=== PATIENT | female | born 1940 | race African-American/Black ===

== ENCOUNTER → 2017-04-04 | Outpatient (CLI) | payer MEDICARE ==
--- NOTE | 2017-04-04 13:29 | WOMENS IMAGING REPORT ---
EXAM DESCRIPTION: BONE DENSITY HIP/SPINE COMPLETED DATE/TIME: 04/04/2017 9:18 am REASON FOR STUDY: AGE-RELATED OSTEOPROSIS; M81.0 M81.0 AGE-RELATED OSTEOPOROSIS W/O CURRENT PATHOLO GICAL FRAC COMPARISON: None. TECHNIQUE: Dual-Energy X-ray Absorptiometry (DEXA) of the AP Spine and Hip. LIMITATIONS: None. FINDINGS: LUMBAR SPINE: The bone mineral density (BMD) measured from L1-L4 in the AP projection correlates with a T-score of -1.9, which is osteopenia as defined by the World Health Organization. HIP: The bone mineral density (BMD) measured in the left femoral neck at the hip correlates with a T-score of -0.7, which is normal as defined by the World Health Organization. IMPRESSION: 1. LUMBAR SPINE: Osteopenia 2. HIP: Normal COMMENT: The World Health Organization defines low BMD as follows: T-score: Normal: Greater than -1.0 Osteopenia: Between -1.0 and -2.5 Osteoporosis: Less than -2.5 without fractures Established osteoporosis: Less than -2.5 with fractures In general, you may wish to consider: Diagnosis Treatment Follow-up DEXA Normal BMD Prevention 2-3 years Osteopenia Prevention/Therapy 1-2 years Osteoporosis Therapy Yearly TECHNICAL DOCUMENTATION: JOB ID: [id number] [employer]- All Rights Reserved
== END ==
LOC: WI 09:18
PROVIDERS: ATTEND Internal Medicine
DX: M81.0 Age-related osteoporosis without current pathological fracture (principal)
CPT/HCPCS: 77080

== ENCOUNTER 2018-02-27 21:16 | Emergency (ER) | payer MEDICARE ==
[2018-02-27] MEDS ORDERED: ASPIRIN 81 MG TABLET, CHEWABLE PO ONE (21:52)
--- NOTE | 2018-02-27 21:54 | ER Document Report ---
ED Medical Screen (RME) - General Chief Complaint: Chest Pain Stated Complaint: CHEST PAIN Time Seen by Provider: 02/27/18 21:48 Notes: 77-year-old female, chief complaint of sharp chest pain when she breathes in and general chest discomfort, states it happened this morning and went away, came back this evening. Reports current discomfort especially with deep breaths. Denies shortness of breath, fever, nausea or vomiting. Recently got over sinus infection and coughing illness. No lower extremity swelling, former smoker, no history of blood clot, [place]. Recently completed azithromycin. PMH: hypertension, gout; takes daily ASA TRAVEL OUTSIDE OF THE [place] IN LAST 30 DAYS: No - Related Data Allergies/Adverse Reactions: No Known Allergies Allergy (Unverified 02/27/18 21:21) Physical Exam - Vital signs Vitals: Temp Pulse Resp BP Pulse Ox 98.7 F 107 H 18 151/63 H 99 02/27/18 21:23 02/27/18 21:23 02/27/18 21:23 02/27/18 21:23 02/27/18 21:23 - Respiratory Respiratory status: No respiratory distress. No: Respiratory distress, Labored Chest status: No: Tender Breath sounds: Normal. No: Decreased air movement, Wheezing - Cardiovascular Rhythm: Regular, Tachycardia - Borderline tachycardia Heart sounds: Normal auscultation, S1 appreciated, S2 appreciated Murmur: No Course - Re-evaluation Re-evalutation: I have greeted and performed a rapid initial assessment of this patient. A comprehensive ED assessment and evaluation of the patient, analysis of test results and completion of the medical decision making process will be conducted by additional ED providers. - Vital Signs Vital signs: Temp Pulse Resp BP Pulse Ox 98.7 F 107 H 18 151/63 H 99 02/27/18 21:23 02/27/18 21:23 02/27/18 21:23 02/27/18 21:23 02/27/18 21:23 Doctor's Discharge - Discharge Referrals: ISABELLE ZAMARRIPA MD [Primary Care Provider] - Follow up as needed
--- NOTE | 2018-02-27 23:17 | RADIOLOGY REPORT (SQ) ---
EXAM DESCRIPTION: Single view chest COMPLETED DATE/TME: 02/27/2018 21:52 CLINICAL HISTORY: 77 years Female chest pain COMPARISON: None. FINDINGS: Cardiac size and mediastinal contour appear within normal limits. There are patchy bilateral pulmonary infiltrates particularly in the periphery of the upper lobes which may reflect chronic interstitial lung disease. Acute developing infectious or inflammatory process is not excluded. No definite pleural fluid or pneumothorax noted. IMPRESSION: Coarse interstitial infiltrates which may be chronic in nature. Acute infectious process not excluded
[2018-02-27 23:56] LABS: ABSOLUTE BASOPHILS # (AUTO) 0.1 10^3/uL (0.0-0.2); ABSOLUTE EOSINOPHILS # (AUTO) 0.2 10^3/uL (0.0-0.6); ABSOLUTE LYMPHOCYTES (AUTO) 1.6 10^3/uL (0.5-4.7); ABSOLUTE MONOCYTES (AUTO) 0.8 10^3/uL (0.1-1.4); ABSOLUTE NEUT (AUTO) 6.5 10^3/uL (1.7-8.2); BASOPHILS % (AUTO) 1.2 % (0-2); EOSINOPHILS % (AUTO) 1.7 % (0-6); HEMATOCRIT 35.5 % (36.0-47.0); LYMPHOCYTES % (AUTO) 17.7 % (13-45); MEAN CORPUSCULAR HEMOGLOBIN 31.6 pg (27.0-33.4); MEAN CORPUSCULAR HGB CONC 33.7 g/dL (32.0-36.0); MEAN CORPUSCULAR VOLUME 94 fl (80-97); MONOCYTES % (AUTO) 8.7 % (3-13); PLATELET COUNT 179 10^3/uL (150-450); RED BLOOD COUNT 3.78 10^6/uL (3.72-5.28); RED CELL DISTRIBUTION WIDTH 14.2 % (11.5-14.0); SEGMENTED NEUTROPHILS % (AUTO) 70.7 % (42-78); TOTAL CELLS COUNTED % (AUTO) 100 %; WHITE BLOOD COUNT 9.2 10^3/uL (4.0-10.5)
[2018-02-28 00:07] LABS: ALANINE AMINOTRANSFERASE 27 U/L (9-52); ALBUMIN 3.6 g/dL (3.5-5.0); ALKALINE PHOSPHATASE 67 U/L (38-126); ANION GAP 8 (5-19); ASPARTATE AMINO TRANSFERASE 27 U/L (14-36); BILIRUBIN,DIRECT 0.2 mg/dL (0.0-0.4); BILIRUBIN,TOTAL 0.7 mg/dL (0.2-1.3); BLOOD UREA NITROGEN 28 mg/dL (7-20); CALCIUM 9.8 mg/dL (8.4-10.2); CARBON DIOXIDE 27 mmol/L (22-30); CHLORIDE 101 mmol/L (98-107); CREATINE KINASE 142 U/L (30-135); GLUCOSE 111 mg/dL (75-110); POTASSIUM 3.7 mmol/L (3.6-5.0); SODIUM 136.1 mmol/L (137-145); TOTAL PROTEIN 6.8 g/dL (6.3-8.2)
[2018-02-28 00:19] LABS: CREATINE KINASE MB 0.99 ng/mL (<4.55)
[2018-02-28 00:23] LABS: TROPONIN I < 0.012 ng/mL
--- NOTE | 2018-02-28 02:40 | ER Document Report ---
ED General - General Chief Complaint: Chest Pain Stated Complaint: CHEST PAIN Time Seen by Provider: 02/27/18 21:48 Notes: Patient is a 77-year-old female, chief complaint of sharp chest pain when she breathes in and general chest discomfort, states it happened this morning and went away, came back this evening. Reports current discomfort especially with deep breaths. Denies shortness of breath, fever, nausea or vomiting. Recently got over sinus infection and coughing illness. No lower extremity swelling, former smoker, no history of blood clot, [place]. Recently completed azithromycin. PMH: hypertension, gout; takes daily ASA TRAVEL OUTSIDE OF THE [place] IN LAST 30 DAYS: No - Related Data Allergies/Adverse Reactions: No Known Allergies Allergy (Unverified 02/27/18 21:21) Past Medical History - General Information source: Patient - Social History Smoking Status: Former Smoker Frequency of alcohol use: None Drug Abuse: None Lives with: Family Family History: Reviewed & Not Pertinent Patient has suicidal ideation: No Patient has homicidal ideation: No - Past Medical History Cardiac Medical History: Reports: Hx Hypertension Renal/ Medical History: Denies: Hx Peritoneal Dialysis - Immunizations Hx Diphtheria, Pertussis, Tetanus Vaccination: Yes Review of Systems - Review of Systems Constitutional: See HPI EENT: No symptoms reported Cardiovascular: See HPI Respiratory: See HPI Gastrointestinal: No symptoms reported Genitourinary: No symptoms reported Female Genitourinary: No symptoms reported Musculoskeletal: See HPI Skin: No symptoms reported Hematologic/Lymphatic: No symptoms reported Neurological/Psychological: No symptoms reported Physical Exam - Vital signs Vitals: Temp Pulse Resp BP Pulse Ox 98.7 F 107 H 18 151/63 H 99 02/27/18 21:23 02/27/18 21:23 02/27/18 21:23 02/27/18 21:23 02/27/18 21:23 - Notes Notes: GENERAL: Alert, interacts well. No acute distress. HEAD: Normocephalic, atraumatic. EYES: Pupils equal, round, and reactive to light. Extraocular movements intact. ENT: Oral mucosa moist, tongue midline. Unremarkable oropharyngeal exam and nasal exam. NECK: Full range of motion. Supple. Trachea midline. LUNGS: Pain noted with inspiration, mild tenderness over the chest wall anteriorly, no crepitus or severe pain, no erythema. Lungs clear on auscultation, no tachypnea or respiratory distress. HEART: Regular rate and rhythm. No murmur ABDOMEN: Soft, non-tender. Non-distended. Bowel sounds present in all 4 quadrants. EXTREMITIES: Moves all 4 extremities spontaneously. No edema, normal radial and dorsalis pedis pulses bilaterally. No cyanosis. BACK: no cervical, thoracic, lumbar midline tenderness. No saddle anesthesia, normal distal neurovascular exam. NEUROLOGICAL: Alert and oriented x3. Normal speech. [cranial nerves II through XII grossly intact]. PSYCH: Normal affect, normal mood. SKIN: Warm, dry, normal turgor. No rashes or lesions noted. Course - Re-evaluation Re-evalutation: EKG sinus rhythm with no T-wave inversions or ST segment changes in consecutive leads. CBC unremarkable, chemistry unremarkable except for creatinine of 1.5, I do not know patient's baseline. Patient does not know her baseline either. Patient has tenderness with inspiration, some pleuritic chest pain, some cough and chest wall tenderness. Chest x-ray showing possible chronic or acute process. Based on her recent illness, cough, pleuritic chest pain, he had a discussion with patient decision was made to cover her for possible developing pneumonia. She does not have fever, tachycardia, hypoxia, or any signs of respiratory distress. Troponin cycled and unremarkable. Patient is asking to go home. I did discuss possible admission for chest pain after discussion patient declined, I do have low suspicion of ACS, pulmonary embolism, this appears to be chest, possible pleurisy, possible pneumonia. Patient's tachycardia was minimal at triage and she is not tachycardic on my exam or repeat evaluation. She does not smoke, has no lower extremity swelling, she has no distress or any current complaints except for when she takes a deep breath on my exam. Patient will be treated with doxycycline, discussed follow- up and return precautions. Patient states understanding and agreement. - Vital Signs Vital signs: Temp Pulse Resp BP Pulse Ox 98.7 F 107 H 15 115/71 96 02/28/18 04:01 02/27/18 21:23 02/28/18 04:01 02/28/18 04:01 02/28/18 04:01 - Laboratory Result Diagrams: 02/27/18 23:30 02/27/18 23:30 Laboratory results interpreted by me: 02/27/18 02/27/18 23:30 23:30 Hct 35.5 L RDW 14.2 H Sodium 136.1 L BUN 28 H Creatinine 1.53 H Est GFR ( Amer) 40 L Est GFR (Non-Af Amer) 33 L Glucose 111 H Creatine Kinase 142 H Discharge - Discharge Clinical Impression: Cough, Chest wall pain Chest pain Qualifiers: Chest pain type: unspecified Qualified Code(s): R07.9 - Chest pain, unspecified Condition: Stable Disposition: HOME, SELF-CARE Additional Instructions: Your workup here tonight is reassuring, your heart workup at this time is normal. Your chest x-ray shows possible developing pneumonia, this is possibly developing after your upper respiratory infection which was viral. Take doxycycline as prescribed. Take Tylenol for pain. Drink plenty of fluids and rest. Your kidney functioning tests, creatinine, was 1.53 today. Please have this followed and trended by your primary care. Follow-up with your primary care within the next several days. Return if you worsen including difficulty breathing, fever, passing out, severe pain, or any other concerning or worsening symptoms. Prescriptions: Doxycycline Hyclate 100 mg PO BID #14 capsule Referrals: ISABELLE ZAMARRIPA MD [Primary Care Provider] - Follow up as needed
[2018-02-28] MEDS ORDERED: DOXYCYCLINE HYCLATE 100 MG TABLET PO ONE (03:36)
[2018-02-28 04:09] VITALS: BP 115/71
--- NOTE | 2018-02-28 07:37 | EKG REPORT ---
SEVERITY:- OTHERWISE NORMAL ECG - SINUS TACHYCARDIA : Confirmed by: Jason Serrano MD 28-Feb-2018 07:37:08
== END 2018-02-28 04:09 | disposition home or self-care (01) ==
LOC: ER 21:16
DX: R07.89 Other chest pain (principal); R05 Cough; Z87.891 Personal history of nicotine dependence
CPT/HCPCS: 93005; 99285; 36415; 82553; 82550; 85025; 80053; 84484; 71045; 93010; A9270 ×2

== ENCOUNTER → 2018-12-05 | Outpatient (CLI) | payer MEDICARE ==
--- NOTE | 2018-12-05 09:01 | RADIOLOGY REPORT (SQ) ---
EXAM DESCRIPTION: CT CHEST WITHOUT COMPLETED DATE/TIME: 12/05/2018 7:40 am REASON FOR STUDY: COPD (J44.9) J44.9 CHRONIC OBSTRUCTIVE PULMONARY DISEASE, UNSPECIFIED COMPARISON: None. TECHNIQUE: CT scan performed of the chest without intravenous contrast. Images reviewed with lung, soft tissue and bone windows. Reconstructed coronal and sagittal MPR images reviewed. All images st ored on PACS. All CT scanners at this facility use dose modulation, iterative reconstruction, and/or weight based d osing when appropriate to reduce radiation dose to as low as reasonably achievable (ALARA). [facility]: Dose Right [facility]: CareDose [facility]: Dose Right [facility]: Teradose 4D [facility]: [employer] RADIATION DOSE: CT Rad equipment meets quality standard of care and radiation dose reduction techniq ues were employed. CTDIvol: 6.9 mGy. DLP: 251 mGy-cm. mGy. LIMITATIONS: No technical limitations. FINDINGS: LUNGS AND PLEURA: Scattered areas of subsegmental subpleural honeycombing with associated bronchiectasis in both lungs. Relative sparing of the mid lung zones. 5 mm nodule left upper lobe i mage 48. No effusions. HILAR AND MEDIASTINAL STRUCTURES: No identified masses or abnormal nodes. No obvious aneurysm. HEART AND VASCULAR STRUCTURES: No aneurysm. No pericardial effusion. UPPER ABDOMEN: No significant findings. Limited exam. THYROID AND OTHER SOFT TISSUES: No masses. No adenopathy. BONES: Nothing acute. HARDWARE: None in the chest. OTHER: No other significant findings. IMPRESSION: Apical and basilar areas of fibrosis and associated bronchiectasis. 5 mm nodule left upper lobe. TECHNICAL DOCUMENTATION: JOB ID: [id number] Quality ID # [id number]: Final reports with documentation of one or more dose reduction techniques (e.g., Au tomated exposure control, adjustment of the mA and/or kV according to patient size, use of iterative reconstruction technique) 2010 [employer]- All Rights Reserved Reading location - IP/workstation name: [email or web address]
== END ==
LOC: RAD 07:10
PROVIDERS: ATTEND Internal Medicine
DX: J44.9 Chronic obstructive pulmonary disease, unspecified (principal); J84.10 Pulmonary fibrosis, unspecified
CPT/HCPCS: 71250

== ENCOUNTER → 2020-02-11 | Outpatient (CLI) | payer MEDICARE ==
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
== END ==
LOC: RAD 16:23
PROVIDERS: ATTEND Internal Medicine
DX: S81.812A Laceration without foreign body, left lower leg, initial encounter (principal); X58.XXXA Exposure to other specified factors, initial encounter; Y93.9 Activity, unspecified; Y92.9 Unspecified place or not applicable

== ENCOUNTER 2020-06-10 08:52 | Day surgery (SDC) | payer MEDICARE ==
[~2020-06-10 08:52] MED LIST: CEFAZOLIN 1 GM/D5W RTU 1 GM/50 ML RTUPB IV PRN; LIDOCAINE 4% CREAM 5 GM TUBE TP PRN
[2020-06-10] MEDS ORDERED: CEFAZOLIN 1 GM/D5W RTU 1 GM/50 ML RTUPB IV ONE (09:10)
[2020-06-10] MEDS ORDERED: LIDOCAINE 4% CREAM 5 GM TUBE ONE (09:10)
[2020-06-10 10:16] LABS: ABSOLUTE BASOPHILS # (AUTO) 0.1 10^3/uL (0.0-0.2); ABSOLUTE EOSINOPHILS # (AUTO) 0.1 10^3/uL (0.0-0.6); ABSOLUTE LYMPHOCYTES (AUTO) 1.2 10^3/uL (0.5-4.7); ABSOLUTE MONOCYTES (AUTO) 0.5 10^3/uL (0.1-1.4); ABSOLUTE NEUT (AUTO) 3.4 10^3/uL (1.7-8.2); BASOPHILS % (AUTO) 1.1 % (0-2); EOSINOPHILS % (AUTO) 2.6 % (0-6); HEMATOCRIT 38.2 % (36.0-47.0); HEMOGLOBIN 13.1 g/dL (12.0-15.5); LYMPHOCYTES % (AUTO) 22.9 % (13-45); MEAN CORPUSCULAR HEMOGLOBIN 32.1 pg (27.0-33.4); MEAN CORPUSCULAR HGB CONC 34.3 g/dL (32.0-36.0); MEAN CORPUSCULAR VOLUME 94 fl (80-97); MONOCYTES % (AUTO) 9.1 % (3-13); PLATELET COUNT 161 10^3/uL (150-450); RED BLOOD COUNT 4.08 10^6/uL (3.72-5.28); RED CELL DISTRIBUTION WIDTH 13.2 % (11.5-14.0); SEGMENTED NEUTROPHILS % (AUTO) 64.3 % (42-78); TOTAL CELLS COUNTED % (AUTO) 100 %; WHITE BLOOD COUNT 5.3 10^3/uL (4.0-10.5)
[2020-06-10 10:39] LABS: ANION GAP 8 (5-19); BLOOD UREA NITROGEN 23 mg/dL (7-20); CALCIUM 10.1 mg/dL (8.4-10.2); CARBON DIOXIDE 25 mmol/L (22-30); CHLORIDE 105 mmol/L (98-107); GLUCOSE 109 mg/dL (75-110); POTASSIUM 3.9 mmol/L (3.6-5.0)
[2020-06-10] MEDS ORDERED: HYDROMORPHONE HCL INJ/PF 2 MG/ML AMPULE ONE (11:00)
[2020-06-10] MEDS ORDERED: MIDAZOLAM 2 MG/2 ML INJ ONE (11:00)
[2020-06-10] MEDS ORDERED: PROPOFOL INJ 200 MG/20 ML VIAL IV ONE (11:01)
--- NOTE | 2020-06-10 11:35 | RADIOLOGY REPORT (SQ) ---
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 RADIONUCLIDE AND DOSE: 584 microcuries TC-99m tilmanocept - Lymph[employer]ek. The route of agent administration: Subcutaneous in the skin. TECHNIQUE: The skin of the right breast was prepped in the usual sterile fashion. The radiopharmace utical was then administered in equally divided doses in the periareolar breast. LIMITATIONS: None. FINDINGS: Images demonstrate activity at the injection site. IMPRESSION: ADMINISTRATION OF RADIOPHARMACEUTICAL FOR SENTINEL LYMPH NODE EVALUATION. TECHNICAL DOCUMENTATION: JOB ID: [id number] 2010 [employer]- All Rights Reserved Reading location - IP/workstation name: [email or web address]
[2020-06-10] MEDS ORDERED: MICROFIBRILLAR COLLAGEN 1 GM PACK ONE (13:01)
[2020-06-10] MEDS ORDERED: METHYLENE BLUE 50 MG/10 ML AMPULE ONE (13:01)
[2020-06-10] MEDS ORDERED: LIDOCAINE 1%/EPINEPHRINE INJ 20 ML VIAL ONE (13:02)
[2020-06-10] MEDS ORDERED: MORPHINE SULFATE 10 MG/ML INJ IV PRN (13:44)
[2020-06-10] MEDS ORDERED: MEPERIDINE HCL/PF INJ 25 MG/1 ML DISP.SYRIN IV PRN (13:44)
[2020-06-10] MEDS ORDERED: ONDANSETRON HCL INJ/PF 4 MG/2 ML SDV IV PRN (13:44)
[2020-06-10] MEDS ORDERED: DIPHENHYDRAMINE HCL 50 MG/ML VIAL IV PRN (13:44)
[2020-06-10] MEDS ORDERED: FENTANYL CITRATE INJ/PF 100 MCG/2 ML AMPUL IV PRN ×3 (13:44)
[2020-06-10] MEDS ORDERED: DEXAMETHASONE SOD PHOSPHATE INJ 4 MG/1 ML VIAL ONE (14:55)
[2020-06-10] MEDS ORDERED: ROCURONIUM BROMIDE INJ 50 MG/5 ML VIAL IV ONE (14:55)
[2020-06-10] MEDS ORDERED: KETOROLAC TROMETHAMINE 60 MG/2 ML SDV ONE (14:55)
[2020-06-10] MEDS ORDERED: ONDANSETRON HCL INJ/PF 4 MG/2 ML SDV ONE (14:55)
--- NOTE | 2020-06-10 15:04 | Operative Report ---
Operative Report DATE OF SURGERY: 06/10/20 PREOPERATIVE DIAGNOSIS: 1. 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 2. History of COPD POSTOPERATIVE DIAGNOSIS: Same OPERATION: 1. Right mastectomy. 2. Right axillary sentinel lymph node biopsy x3 using dual mapping technique. 3. Drainage of chest wall SURGEON: FRANCESCO CHAVEZ 1ST CURRICULUM COUNSELOR: KAY WILLSON ANESTHESIA: GA TISSUE REMOVED OR ALTERED: Right breast; 3 sentinel lymph nodes COMPLICATIONS: None ESTIMATED BLOOD LOSS: 150 cc INTRAOPERATIVE FINDINGS: See below PROCEDURE: Patient was seen in the preop holding area where the right axilla was scanned with the neoprobe. Findings are significant for an area of increased uptake in the right axilla consistent with successful attic mapping using Lymph[employer]ek. The patient was then taken to the main operating room where general anesthesia was induced. The right arm was abducted, and the right breast injected with 2 cc of full-strength methylene blue 10 o'clock position, areolar border. The right breast was massaged, than the right breast and axilla were prepped and draped in sterile fashion with Betadine Surgical plan surgical timeout were conducted. Markings were made on the skin for a classic elliptical excision for planned mastectomy. The breast was incised with a #10 blade. Superior and inferior skin flaps were raised. The superior flap was taken to the infraclavicular area, medially to the parasternal tissue; inferiorly the flap was taken to the insertion inferior to the insertion of the pectoralis muscle, and laterally to the latissimus dorsi muscle. The breast was removed from the chest wall, including the pectoralis major fascia. Of note the tumor in the 7:30 position, right breast, came very close to the chest wall but did not invade the muscle. We did take a thin sliver of pectoralis major muscle with the posterior side of the mastectomy representing the deep margin. The lateral skin flaps were elevated, and the dissection taken down to the origination of the pectoralis major muscle. The undersurface of the breast was taken off of the lateral edge of the pectoralis major muscle. With the breast in situ, we now harvested sentinel lymph nodes. 3 sentinel lymph nodes were harvested from the low to mid axilla. The first hot but not blue with an in vivo count of 3604. The ex vivo count was 1159. Slightly deep to this was a second sentinel lymph node, blue and hot with an in vivo count of 9181 and an ex vivo count of 11,190. The third sentinel lymph node in the same vicinity very small, blue and hot had an ex vivo count of 12,843. Background counts were negligible. We felt that the sentinel lymph node portion of the operation was complete. The tail isabella Ramos was excised from the axilla with electrocautery. The right breast was marked with a long silk ramon ture in the lateral position, short suture in the superior position. Dr. Chavez personally walked the specimen to Dr. Fuchs, pathologist, who inked the specimen, and sliced it vertically carefully inspecting the tumor, and the posterior margin. Dr. Fuchs felt that the tumor was well encapsulated, fibrous tissue between it and the deep of the specimen. Therefore no additional margin was recommended. We returned to the patient check for bleeding there was none. A large Wilfrid drain was placed to the inferior skin flap, secured to the skin with 2-0 Prolene suture, and wound closed in layers with 2-0 Vicryl 3-0 Vicryl Dermabond glue. Patient tolerated the procedure well, extubated, taken to recovery in stable condition. STELLA Juarez assisted with the dissection, drain insertion, and layered Closure of the mastectomy wound.
[2020-06-10] MEDS ORDERED: NORMAL SALINE 1000 ML 1,000 ML IV PRN (15:05)
[2020-06-10] MEDS ORDERED: OXYCODONE-ACETAMINOPHEN 5-325 MG TABLET PO PRN (15:05)
[2020-06-10] MEDS ORDERED: DOCUSATE SODIUM 100 MG CAPSULE PO SCH (18:00)
[2020-06-11] MEDS ORDERED: ACETAMINOPHEN 1,000 MG/100 ML RTUPB IV ONE ×2 (00:33)
[2020-06-11] MEDS: ACETAMINOPHEN INJ/PF 1000 MG/100 ML SDV IV SCH ×3 (00:51→05:56)
[2020-06-11 07:26] VITALS: BP 106/56
--- NOTE | 2020-06-11 10:35 | PDOC DISCHARGE SUMMARY ---
General - Admit/Disc Date/PCP Admission Date/Primary Care Provider: 06/10/20 08:52 ISABELLE ZAMARRIPA MD Discharge Date: 06/11/20 - Discharge Diagnosis Final Diagnosis: Metaplastic right breast cancer - Assessment Summary: Patient is 80-year-old Afro-[place]ib[place] female with metastatic right breast cancer. She is admitted to the ambulatory surgery for right mastectomy in conjunction with sentinel lymph node biopsy using dual mapping technique. The procedure was performed by Dr. Chavez, and dictated vertically. Postoperatively the patient did well, tolerated diet, voiding, had excellent pain control. Warning after surgery she was felt to receive maximum benefit from the hospitalization was discharged home. Disposition: Patient be discharged home the care of her family follow-up with Dr. Chavez off on June 22 for drain removal. She will take Motrin and/or Tylenol as needed pain. - Additional Information Resuscitation Status: Full Code Discharge Diet: As Tolerated Discharge Activity: Activity As Tolerated, Balance Activity w/Rest, No Lifting/Push/Pulling Referrals: ISABELLE ZAMARRIPA MD [Primary Care Provider] - FRANCESCO CHAVEZ MD [ACTIVE STAFF] - 06/22/20 8:00 am Home Medications: Aspirin [Aspirin 81 mg Chewable Tablet] 1 tab PO DAILY 02/27/18 Valsartan/Hydrochlorothiazide [Valsartan-Hctz 160-25 mg Tab] 1 tab PO DAILY 02/27/18 Multivitamin [Tab-A-Jia (Multiple Vitamin) Tablet] 1 tab PO DAILY 06/10/20 History of Present Illiness History of Present Illness: BÁRBARA CAPPS is a 80 year old female Physical Exam Vital Signs: Temp Pulse Resp BP Pulse Ox 97.6 F 68 18 106/56 L 98 06/11/20 09:48 06/11/20 09:48 06/11/20 09:48 06/11/20 09:48 06/11/20 09:48 Intake & Output 06/10/20 06/11/20 06/12/20 06:59 06:59 06:59 Intake Total 1750 Output Total 330 Balance 1420 Weight 78.93 kg 79 kg Results Laboratory Results: WBC 5.3 10^3/uL (4.0-10.5) 06/10/20 09:45 RBC 4.08 10^6/uL (3.72-5.28) 06/10/20 09:45 Hgb 13.1 g/dL (12.0-15.5) 06/10/20 09:45 Hct 38.2 % (36.0-47.0) 06/10/20 09:45 MCV 94 fl (80-97) 06/10/20 09:45 MCH 32.1 pg (27.0-33.4) 06/10/20 09:45 MCHC 34.3 g/dL (32.0-36.0) 06/10/20 09:45 RDW 13.2 % (11.5-14.0) 06/10/20 09:45 Plt Count 161 10^3/uL (150-450) 06/10/20 09:45 Lymph % (Auto) 22.9 % (13-45) 06/10/20 09:45 Hyde % (Auto) 9.1 % (3-13) 06/10/20 09:45 Eos % (Auto) 2.6 % (0-6) 06/10/20 09:45 Baso % (Auto) 1.1 % (0-2) 06/10/20 09:45 Absolute Neuts (auto) 3.4 10^3/uL (1.7-8.2) 06/10/20 09:45 Absolute Lymphs (auto) 1.2 10^3/uL (0.5-4.7) 06/10/20 09:45 Absolute Monos (auto) 0.5 10^3/uL (0.1-1.4) 06/10/20 09:45 Absolute Eos (auto) 0.1 10^3/uL (0.0-0.6) 06/10/20 09:45 Absolute Basos (auto) 0.1 10^3/uL (0.0-0.2) 06/10/20 09:45 Seg Neutrophils % 64.3 % (42-78) 06/10/20 09:45 Sodium 137.5 mmol/L (137-145) 06/10/20 09:45 Potassium 3.9 mmol/L (3.6-5.0) 06/10/20 09:45 Chloride 105 mmol/L (98-107) 06/10/20 09:45 Carbon Dioxide 25 mmol/L (22-30) 06/10/20 09:45 Anion Gap 8 (5-19) 06/10/20 09:45 BUN 23 mg/dL (7-20) H 06/10/20 09:45 Creatinine 1.21 mg/dL (0.52-1.25) 06/10/20 09:45 Est GFR ( Amer) 52 (>60) L 06/10/20 09:45 Est GFR (MDRD) Non-Af 43 (>60) L 06/10/20 09:45 Glucose 109 mg/dL (75-110) 06/10/20 09:45 Calcium 10.1 mg/dL (8.4-10.2) 06/10/20 09:45 COVID-19 Source See comment 06/06/20 09:05 COVID-19 (LACIE) Not Detected (Not Detect) 06/06/20 09:05 Impressions: Lymph Scan Nuclear Medicine 06/10/20 00:00 IMPRESSION: ADMINISTRATION OF RADIOPHARMACEUTICAL FOR SENTINEL LYMPH NODE EVALUATION.
== END 2020-06-11 10:34 | disposition home or self-care (01) ==
LOC: INOR 08:52 → OROUT 08:52 → UNDOADMIN 08:52 → EDSTATUS 12:30 → 2N 17:02 → INOR 17:02 → 2N 17:02 → UNDODISIN 06-11 10:34 → OROUT 06-11 10:34
PROVIDERS: ATTEND Surgery
DX: C50.111 Malignant neoplasm of central portion of right female breast (principal); Z17.1 Estrogen receptor negative status [ER-]; I10 Essential (primary) hypertension; M10.9 Gout, unspecified; Z20.828 Contact with and (suspected) exposure to other viral communicable diseases; Z79.899 Other long term (current) drug therapy; Z79.82 Long term (current) use of aspirin; Z87.891 Personal history of nicotine dependence
CPT/HCPCS: 36415; 85025; 80048; 88342 ×2; 88307 ×2; 78195; 01610; 19303; 38525; U0003; A9520; J2250; J0690; J3490 ×3; J1100; A9270; J1885; J1170; J2405; J7030; J2704; J0131; Q9968; C9803; 1610; 87635